=== PATIENT | female | born 1990 | race Hispanic/Latino ===

== ENCOUNTER 2016-10-01 12:11 | Emergency (ER) | payer OTHER ==
[2016-10-01 12:21] VITALS: BMI 48.1
[2016-10-01 12:25] VITALS: BP 121/73
[2016-10-01] MEDS ORDERED: Lidocaine 1%/Epinephrine 1:100000 30 ml vial IJ STA (12:46)
--- NOTE | 2016-10-01 12:50 | ED PDOC ---
Arrival/HPI - General Chief Complaint: Groin Pain Time Seen by Provider: 10/01/16 12:39 Historian: Patient - History of Present Illness Narrative History of Present Illness (Text): 10/01/16 12:41 A 25 year old female presents to the emergency department complaining of a painful abscess to the left groin. Patient reports she noticed it yesterday. She notes some drainage from the site yesterday evening. She denies any fever, or other complaints at this time. PMD: Dr. Murphy Time/Duration: 24 hours Symptom Onset: Sudden Symptom Course: Unchanged Quality: Other Activities at Onset: Rest Context: Home Past Medical History - Provider Review Nursing Documentation Reviewed: Yes - Infectious Disease Hx of Infectious Diseases: None - Pulmonary Hx Bronchitis: Yes Hx Pneumonia: Yes - Gastrointestinal Hx Gall Bladder Disease: Yes Hx Gastroesophageal Reflux: Yes - Psychiatric Hx Anxiety: Yes Hx Depression: No Hx Emotional Abuse: No Hx Panic Disorder: Yes Hx Physical Abuse: No Hx Substance Use: Yes (cannabis) - Surgical History Hx Section: Yes (x1) Hx Tonsillectomy: Yes - Anesthesia Hx Anesthesia: Yes Hx Anesthesia Reactions: No Hx Malignant Hyperthermia: No - Suicidal Assessment Feels Threatened In Home Enviroment: No Family/Social History - Physician Review Nursing Documentation Reviewed: Yes Family/Social History: Unknown Family HX Smoking Status: Heavy Smoker > 10 Cigarettes Daily Hx Alcohol Use: No Hx Substance Use: Yes (cannabis) Allergies/Home Meds Allergies/Adverse Reactions: Allergies No Known Allergies Allergy (Verified 03/13/15 22:49) Review of Systems - Physician Review All systems were reviewed & negative as marked: Yes - Review of Systems Constitutional: absent: Fevers Skin: Abscess Physical Exam Vital Signs Reviewed: Yes Vital Signs Temp Pulse Resp BP Pulse Ox 10/01/16 14:00 98.1 F 79 16 98 10/01/16 12:25 98.5 F 81 18 121/73 96 Temperature: Afebrile Blood Pressure: Normal Pulse: Regular Respiratory Rate: Normal Appearance: Positive for: Well-Appearing, Non-Toxic, Comfortable Pain Distress: None Mental Status: Positive for: Alert and Oriented X 3 - Systems Exam Head: Present: Atraumatic, Normocephalic Conjunctiva: Present: Normal Mouth: Present: Moist Mucous Membranes Neck: Present: Normal Range of Motion Upper Extremity: Present: Normal Inspection Lower Extremity: Present: Normal Inspection Neurological: Present: GCS=15, CN II-XII Intact, Speech Normal Skin: Present: Warm, Dry, Normal Color, Other (1 cm area of erythema and fluctuance to the left groin). No: Rashes Psychiatric: Present: Alert, Oriented x 3, Normal Insight, Normal Concentration Medical Decision Making ED Course and Treatment: 10/01/16 12:41 Impression: A 25 year old female with an abscess to the left groin. Differential Diagnosis include but are not limited to: abscess. bedside us shows minimal colllection will open up and attempt to express more. Plan: -- Lidocaine and Tylenol -- Reassess and disposition Prior Visits: Notes and results from previous visits were reviewed. The patient last presented to the emergency department on 03/13/15 for evaluation of a left axilla abscess. Progress Notes: Bedside ultrasound shows minimal collection. Patient reports drainage of pus last night. Additional incision made with small amount of pus. Retail Analytics Manager: Jin , ED Scribe. Will discharge on Bactrim. 10/01/16 16:55 10/01/16 16:56 given return precautions. pt verbalizes understanding. - Medication Orders Current Medication Orders: Discontinued Medications Acetaminophen (Tylenol 325mg Tab) 975 mg PO STAT STA Stop: 10/01/16 12:47 Last Admin: 10/01/16 13:12 Dose: 975 mg Lidocaine/Epinephrine (Lidocaine 1%/Epinephrine 1:216964 30 Ml) 5 ml IJ STAT STA Stop: 10/01/16 12:47 Trimethoprim/Sulfamethoxazole (Bactrim Ds Tab) 1 tab PO STAT STA PRN Reason: Protocol Stop: 10/01/16 13:19 Last Admin: 10/01/16 13:51 Dose: 1 tab - Scribe Statement The provider has reviewed the documentation as recorded by the Concettaibe Jin Garcia Provider Scribe Attestation: All medical record entries made by the Concettaibrodney were at my direction and personally dictated by me. I have reviewed the chart and agree that the record accurately reflects my personal performance of the history, physical exam, medical decision making, and the department course for this patient. I have also personally directed, reviewed, and agree with the discharge instructions and disposition. Disposition/Present on Arrival - Present on Arrival Any Indicators Present on Arrival: No History of DVT/PE: No History of Uncontrolled Diabetes: No Urinary Catheter: No History of Decub. Ulcer: No History Surgical Site Infection Following: None - Disposition Have Diagnosis and Disposition been Completed?: Yes Diagnosis: Abscess Disposition: HOME/ ROUTINE Disposition Time: 02:00 Condition: STABLE Discharge Instructions (ExitCare): Abscess (ED) Additional Instructions: please follow up with your doctor. return to er with worsneing symptoms or concerns. Prescriptions: Naproxen 500 mg PO BID PRN #14 tab PRN Reason: Pain, Mild (1-3) Sulfamethoxazole/Trimethoprim [Bactrim DS 800 mg-160 mg] 1 tab PO BID #14 tab Referrals: Gadiel Vazquez MD [Medical Doctor] - Follow up with primary
[2016-10-01] MEDS ORDERED: Tmp-Smz 800 mg-160 mg DS Tab PO STA (13:18)
[2016-10-01 14:01] VITALS: PULSE 79; RESP 16; TEMP 98.1; O2SAT 98
== END 2016-10-01 14:01 | disposition home or self-care (01) ==
LOC: ED 12:11
DX: L02.214 Cutaneous abscess of groin (principal)

== ENCOUNTER 2017-01-27 17:28 | Emergency (ER) | payer OTHER ==
[2017-01-27 17:29] VITALS: BMI 48.1
[2017-01-27 18:24] LABS: URINE BILIRUBIN SMALL (NEGATIVE); URINE BLOOD LARGE (NEGATIVE); URINE GLUCOSE (UA) NEGATIVE (NEGATIVE); URINE KETONE TRACE mg/dL (NEGATIVE); URINE LEUKOCYTE ESTERASE TRACE Leu/uL (NEGATIVE); URINE PROTEIN 100 mg/dL (<30 mg/dL)
[2017-01-27 18:25] LABS: URINE APPEARANCE SL CLOUDY (CLEAR); URINE COLOR YELLOW (YELLOW)
[2017-01-27 18:37] LABS: URINE RBC 15 - 20 /hpf (0-2)
[2017-01-27 18:38] LABS: URINE BACTERIA MOD (NEG)
--- NOTE | 2017-01-27 19:12 | ED PDOC ---
"Arrival/HPI - General Chief Complaint: Female Genitourinary Time Seen by Provider: 01/27/17 17:59 Historian: Patient - History of Present Illness Narrative History of Present Illness (Text): 01/27/17 19:09 26yr old female presents today with brown vaginal discharge. pt states she is due to get her period and noticed a brown discharge. pt states she has never had a brown bloody discharge before and is worried that something is not right. pt c/o occasional cramping. no cp or sob. no vomiting/diarrhea. no urinary symptoms. no weakness or fatigue. pt also states she feels a small lump to left side of neck just under jaw. no fever/chills. + recent URI. Time/Duration: Other (1 day) Symptom Onset: Sudden Symptom Course: Improving, Intermittent Quality: Cramping Severity Level: 2 Past Medical History - Provider Review Nursing Documentation Reviewed: Yes - Travel History Have you recently traveled outside [place] w/in the past 3 mons?: No - Infectious Disease Hx of Infectious Diseases: None - Pulmonary Hx Bronchitis: Yes Hx Pneumonia: Yes - Gastrointestinal Hx Gall Bladder Disease: Yes Hx Gastroesophageal Reflux: Yes - Psychiatric Hx Anxiety: Yes Hx Depression: No Hx Emotional Abuse: No Hx Panic Disorder: Yes Hx Physical Abuse: No Hx Substance Use: Yes (cannabis) - Surgical History Hx Section: Yes (x1) Hx Tonsillectomy: Yes - Anesthesia Hx Anesthesia: Yes Hx Anesthesia Reactions: No Hx Malignant Hyperthermia: No - Suicidal Assessment Feels Threatened In Home Enviroment: No Family/Social History - Physician Review Nursing Documentation Reviewed: Yes Family/Social History: Unknown Family HX Smoking Status: Heavy Smoker > 10 Cigarettes Daily Hx Alcohol Use: No Hx Substance Use: Yes (cannabis) Allergies/Home Meds Allergies/Adverse Reactions: Allergies No Known Allergies Allergy (Verified 03/13/15 22:49) Review of Systems - Review of Systems Constitutional: absent: Fatigue, Fevers Respiratory: absent: SOB, Cough Cardiovascular: absent: Chest Pain, Palpitations Gastrointestinal: Abdominal Pain. absent: Constipation, Diarrhea, Nausea, Vomiting Genitourinary Female: Vaginal Bleeding. absent: Dysuria, Frequency, Hematuria Musculoskeletal: absent: Arthralgias, Back Pain, Neck Pain Skin: absent: Rash, Pruritis Neurological: absent: Headache, Dizziness Psychiatric: absent: Anxiety, Depression Physical Exam Vital Signs Reviewed: Yes Vital Signs Temp Pulse Resp BP Pulse Ox 01/27/17 20:25 98 F 78 19 124/75 99 01/27/17 18:58 98.1 F 74 18 132/72 98 Temperature: Afebrile Blood Pressure: Normal Pulse: Regular Respiratory Rate: Normal Appearance: Positive for: Well-Appearing, Non-Toxic, Comfortable Pain Distress: None Mental Status: Positive for: Alert and Oriented X 3 - Systems Exam Head: Present: Atraumatic Mouth: Present: Moist Mucous Membranes Pharnyx: Present: Normal. No: ERYTHEMA, EXUDATE Nose (External): Present: Atraumatic Nose (Internal): Present: Normal Inspection Neck: Present: Normal Range of Motion, Trachea Midline, Other (there is a small minimally tender mobile nodule noted just inferior to the angle of the mandible on the left side; no erythema; ) Respiratory/Chest: Present: Clear to Auscultation, Good Air Exchange. No: Respiratory Distress, Accessory Muscle Use Cardiovascular: Present: Regular Rate and Rhythm, Normal S1, S2. No: Murmurs Abdomen: Present: Normal Bowel Sounds. No: Tenderness, Distention, Peritoneal Signs, Rebound, Guarding Genitourinary/Pelvic Exam: Present: Normal External Genitalia, Vaginal Bleeding (brownish discharge;), Cervical os Closed, Other (chaparoned by Alejandro REYES RN). No: Vaginal Lesions, Adenexal Tenderness, Adenexal Mass, Cervical Motion Tendernes, Odor Upper Extremity: Present: Normal Inspection Lower Extremity: Present: Normal Inspection Neurological: Present: GCS=15 Skin: Present: Warm, Dry, Normal Color. No: Rashes Psychiatric: Present: Alert, Oriented x 3 Medical Decision Making ED Course and Treatment: 01/27/17 19:13 26yr old female c/o brown bloody discharge. states she is due to get her period soon. LMP 9.14.17. pt refusing blood work. transvaginal US: FINDINGS: Uterus/cervix: Uterus measures 9.0 x 3.4 x 5.4 cm in size. No myometrial mass. Endometrium: 0.3 cm in thickness. Right ovary: 4.7 x 2.2 x 4.9 cm in size. No mass. Small follicles. Normal flow. Left ovary: 4.1 x 4.1 x 1.8 cm in size. No mass. Small follicles. Normal flow. Free fluid: No significant free fluid. Bladder: Unremarkable as visualized. IMPRESSION: 1. No acute findings. EXAM: US Pelvis, Transvaginal CLINICAL HISTORY: 26 years old, female; Pain; Pelvic pain; Additional info: Cramping and bloody discharge TECHNIQUE: Real-time transvaginal pelvic ultrasound (complete) with image documentation. Transvaginal imaging was used for better evaluation of the endometrium and adnexa. ANASTACIA MCMANUS | Final Radiology Report CONFIDENTIALITY STATEMENT This report is intended only for use by the referring physician, and only in accordance with law. If you received this in error, call [phone]. Page 2 of 2 COMPARISON: No relevant prior studies available. FINDINGS: Uterus/cervix: Uterus measures 9.0 x 3.4 x 5.4 cm in size. No myometrial mass. Endometrium: 0.3 cm in thickness. Right ovary: 4.7 x 2.2 x 4.9 cm in size. No mass. Small follicles. Normal flow. Left ovary: 4.1 x 4.1 x 1.8 cm in size. No mass. Small follicles. Normal flow. Free fluid: No significant free fluid. Bladder: Empty bladder which cannot be evaluated with this probe. IMPRESSION: 1. No acute findings. pt with very small lump to left side of neck just under mandible; no edema, no erythema; no warmth. minimal tenderness. pt with recent uri, advised f/u with PMD for blood work; pt refusing blood work today. advised patient it is most likely lymph node but to f/u with doctor to make sure it resolves otherwise it will need further work up. patient was advised to f/u with PARTS COUNTER SPECIALIST. pt verbalized understanding of D/c instructions and need for f/u with PMD/foreign food specialty cook. impression; vaginal bleeding, lymphadenopathy, UTI increase fluids follow up with the primary care physician within the next 2 days follow up with the PARTS COUNTER SPECIALIST within the next 2 days. macrobid twice daily x 10 days return immediately if symptoms worsen,persist or if new symptoms develop. - Lab Interpretations Lab Results: Lab Results 01/27/17 18:10: Urine Color Yellow, Urine Appearance Sl cloudy, Urine pH 6.0, Ur Specific [place] >= 1.030, Urine Protein 100 H, Urine Glucose (UA) Negative, Urine Ketones Trace H, Urine Blood Large H, Urine Nitrate Negative, Urine Bilirubin Small H, Urine Urobilinogen 1.0 H, Ur Leukocyte Esterase Trace H, Urine RBC 15 - 20, Urine WBC 5 - 10, Ur Epithelial Cells 6 - 8, Urine Bacteria Mod - RAD Interpretation Radiology Orders: 01/27/17 18:30 TRANSVAGINAL [US] Stat - Medication Orders Current Medication Orders: Discontinued Medications Ibuprofen (Motrin Tab) 600 mg PO STAT STA Stop: 01/27/17 19:07 Last Admin: 01/27/17 19:14 Dose: 600 mg MAR Pain/Vitals Document 01/27/17 19:14 GMI (Rec: 01/27/17 19:16 GMI [id number]) Pain Reassessment Is This A Pain ReAssessment? Yes Sleep Is patient sleeping during reassessment? No Presence of Pain Presence of Pain Yes Pain Scale Used Pain Scale Used Numeric Location Description Intermittent Intensity 6 Scale Used Numeric Pain Behavior Facial Grimacing Aggravating Factors None Alleviating Factors Medication Disposition/Present on Arrival - Present on Arrival Any Indicators Present on Arrival: No History of DVT/PE: No History of Uncontrolled Diabetes: No Urinary Catheter: No History of Decub. Ulcer: No History Surgical Site Infection Following: None - Disposition Have Diagnosis and Disposition been Completed?: Yes Diagnosis: Vaginal bleeding, Lymphadenopathy, Urinary tract infection Disposition: HOME/ ROUTINE Disposition Time: 20:05 Patient Plan: Discharge Condition: GOOD Discharge Instructions (ExitCare): Urinary Tract Infection in Women (ED) Additional Instructions: increase fluids follow up with the primary care physician within the next 2 days Nitrofurantoin; 1 tablet twice daily x 10 days. follow up with the PARTS COUNTER SPECIALIST within the next 2 days. return immediately if symptoms worsen,persist or if new symptoms develop. Prescriptions: Nitrofurantoin Macrocrystals [Macrobid] 100 mg PO BID #20 cap Referrals: Shant Bhagat MD [Staff Provider] - Follow up with primary Jazmin Ott MD [Staff Provider] - Follow up with primary Forms: [employer] (Mongolian), WORK NOTE"
--- NOTE | 2017-01-27 20:14 | US ---
EXAM: US Pelvis Complete, Transabdominal CLINICAL HISTORY: 26 years old, female; Pain; Pelvic pain; Additional info: Cramping and bloody discharge TECHNIQUE: Real-time transabdominal pelvic ultrasound (complete) with image documentation. COMPARISON: No relevant prior studies available. FINDINGS: Uterus/cervix: Uterus measures 9.0 x 3.4 x 5.4 cm in size. No myometrial mass. Endometrium: 0.3 cm in thickness. Right ovary: 4.7 x 2.2 x 4.9 cm in size. No mass. Small follicles. Normal flow. Left ovary: 4.1 x 4.1 x 1.8 cm in size. No mass. Small follicles. Normal flow. Free fluid: No significant free fluid. Bladder: Unremarkable as visualized. IMPRESSION: 1.No acute findings. EXAM: US Pelvis, Transvaginal CLINICAL HISTORY: 26 years old, female; Pain; Pelvic pain; Additional info: Cramping and bloody discharge TECHNIQUE: Real-time transvaginal pelvic ultrasound (complete) with image documentation. Transvaginal imaging was used for better evaluation of the endometrium and adnexa. COMPARISON: No relevant prior studies available. FINDINGS: Uterus/cervix: Uterus measures 9.0 x 3.4 x 5.4 cm in size. No myometrial mass. Endometrium: 0.3 cm in thickness. Right ovary: 4.7 x 2.2 x 4.9 cm in size. No mass. Small follicles. Normal flow. Left ovary: 4.1 x 4.1 x 1.8 cm in size. No mass. Small follicles. Normal flow. Free fluid: No significant free fluid. Bladder: Empty bladder which cannot be evaluated with this probe. IMPRESSION: 1.No acute findings.
[2017-01-27 20:27] VITALS: BP 124/75; PULSE 78; RESP 19; TEMP 98; O2SAT 99
== END 2017-01-27 20:29 | disposition home or self-care (01) ==
LOC: ED 17:28
DX: N39.0 Urinary tract infection, site not specified (principal); R59.1 Generalized enlarged lymph nodes; N93.9 Abnormal uterine and vaginal bleeding, unspecified

== ENCOUNTER 2018-03-30 08:24 | Emergency (ER) | payer OTHER ==
[2018-03-30 08:25] VITALS: BMI 48.1
[2018-03-30 08:33] VITALS: TEMP 97.9
[2018-03-30] MEDS ORDERED: Sodium Chloride 0.9% 1,000 ML IV STA ×2 (08:44)
--- NOTE | 2018-03-30 08:54 | ED PDOC ---
Arrival/HPI - General Chief Complaint: Female Genitourinary Time Seen by Provider: 03/30/18 08:43 Historian: Patient, Parent - History of Present Illness Narrative History of Present Illness (Text): 03/30/18 08:52 A 27 year old female, whose past medical history includes , presents to the emergency department for further evaluation of miscarriage. The patient reports 7 hours of heavy bleeding. Patient reports that she is 9-11 weeks . She states that she is dizzy and unable to walk. Patient denies fevers, chills, headache, chest pain, shortness of breath, dyspnea on exertion, cough, nausea, vomiting, diarrhea, back pain, neck pain, urinary/bowel changes, or any other complaint. OB- SUPPLY CHAIN MANAGER: Dr. Jasson Pavon ([place]) Time/Duration: Other (Today. 7 hours.) Symptom Onset: Gradual Symptom Course: Unchanged Activities at Onset: Rest, Light Context: Home Past Medical History - Provider Review Nursing Documentation Reviewed: Yes - Infectious Disease Hx of Infectious Diseases: None - Cardiac Hx Cardiac Disorders: No - Pulmonary Hx Bronchitis: Yes Hx Pneumonia: Yes - Neurological Hx Neurological Disorder: No - HEENT Hx HEENT Disorder: No - Renal Hx Renal Disorder: No - Endocrine/Metabolic Hx Endocrine Disorders: No - Hematological/Oncological Hx Blood Disorders: No - Integumentary Hx Dermatological Disorder: No - Musculoskeletal/Rheumatological Hx Musculoskeletal Disorders: No - Gastrointestinal Hx Gall Bladder Disease: Yes - Genitourinary/Gynecological Hx Genitourinary Disorders: No - Psychiatric Hx Anxiety: Yes Hx Depression: No Hx Substance Use: Yes (cannabis) - Surgical History Hx Tonsillectomy: Yes - Anesthesia Hx Anesthesia: Yes Hx Anesthesia Reactions: No Hx Malignant Hyperthermia: No - Suicidal Assessment Feels Threatened In Home Enviroment: No Family/Social History - Physician Review Nursing Documentation Reviewed: Yes Family/Social History: No Known Family HX Smoking Status: Heavy Smoker > 10 Cigarettes Daily Hx Alcohol Use: No Hx Substance Use: Yes (cannabis) Allergies/Home Meds Allergies/Adverse Reactions: Allergies No Known Allergies Allergy (Verified 03/30/18 08:33) Home Medications: Home Meds Medication Instructions Recorded Confirmed No Known Home Med 03/30/18 03/30/18 Review of Systems - Physician Review All systems were reviewed & negative as marked: Yes - Review of Systems Constitutional: absent: Fevers Respiratory: absent: SOB, Cough Cardiovascular: absent: Chest Pain, SORIANO Gastrointestinal: absent: Diarrhea, Nausea, Vomiting Genitourinary Female: Vaginal Bleeding Musculoskeletal: absent: Back Pain, Neck Pain Neurological: Dizziness. absent: Headache Physical Exam - Physical Exam Narrative Physical Exam (Text): Gen: VS reviewed, alert, well developed, well nourished, nontoxic, moderate distress. Appears somewhat confused. ENT: normal pharynx. Eye: EOMI, PERRL. Neck: no JVD, supple, no adenopathy. CV: regular rate, regular rhythm, no rubs, no murmur, no gallops, S1, S2, pulses equal and strong. Pulm: no distress, clear to auscultation, no wheeze, no rhonchi, breath sounds equal, no rales. Abd: mild suprapucic tenderness. soft, no guarding, no rebound, no rigidity, normal bowel sounds. : large clots of blood expressed from vagina with valsalva. Ext: no edema. Skin: Pale, no rash, no cyanosis. Psych: responds appropriately to questions, normal affect. Neuro: oriented x 3, CN2-12 intact grossly, motor intact, sensation intact. Vital Signs Reviewed: Yes Vital Signs Temp Pulse Resp BP Pulse Ox 03/30/18 08:31 97.9 F 73 18 101/63 99 Temperature: Afebrile Blood Pressure: Normal Pulse: Regular Respiratory Rate: Normal Appearance: Positive for: Non-Toxic Pain Distress: None Mental Status: Positive for: Alert and Oriented X 3 Medical Decision Making ED Course and Treatment: 03/30/18 08:54 Impression: A 27 year old female, 9-11 weeks , presents to the emergency department with a complaint of 7 hours of vaginal bleeding. Plan: -- Transvaginal Ultrasound -- Labs -- IV Fluids -- Reassess and disposition Prior Visits: Notes and results from previous visits were reviewed. Progress Notes: 03/30/18 08:55: Quick bedside Ultrasound performed by myself, on my inspection there is a heterogeneous fluid within the uterus, no definitive gestation seen. Case discussed with Dr. Garcia (DISTRICT MANAGER construction mgr) who agrees patient will need emergent consultation and likely and D & C. Will call back regarding disposition. 03/30/18 08:55: Dr. Garcia called back. 03/30/18 09:04: Discussed with Dr. Pavon at [facility] who accepts patient for transfer ER to ER. Agrees we should hold blood transfusion for now. 03/30/18 09:10: Report given to [facility] ER physician, Dr. Chau. 03/30/18 09:23 patient seen for acute severe bleeding and shock-like clinical state. patient 11weeks by reported dates. 2 iv's started, IVF bolus, vitals signs relatively normal, Hb stable for now. Patient will require a obgyn consultation for presumed spontaneous miscarriage. - RAD Interpretation Radiology Orders: 03/30/18 08:45 TRANSVAGINAL [US] Stat - Medication Orders Current Medication Orders: Sodium Chloride (Sodium Chloride 0.9%) 1,000 mls @ 999 mls/hr IV .Q1H1M STA Stop: 03/30/18 09:44 Sodium Chloride (Sodium Chloride 0.9%) 1,000 mls @ 999 mls/hr IV .Q1H1M STA Stop: 03/30/18 09:44 - Scribe Statement The provider has reviewed the documentation as recorded by the Cande Castellano Provider Scribe Attestation: All medical record entries made by the Scribe were at my direction and personally dictated by me. I have reviewed the chart and agree that the record accurately reflects my personal performance of the history, physical exam, medical decision making, and the department course for this patient. I have also personally directed, reviewed, and agree with the discharge instructions and disposition. Disposition/Present on Arrival - Present on Arrival Any Indicators Present on Arrival: No History of DVT/PE: No History of Uncontrolled Diabetes: No Urinary Catheter: No History of Decub. Ulcer: No History Surgical Site Infection Following: None - Disposition Have Diagnosis and Disposition been Completed?: Yes Diagnosis: Miscarriage, Incomplete miscarriage with shock Disposition: Transfer [facility] Disposition Time: 09:27 Condition: FAIR Forms: [employer] (Hong Konger)
[2018-03-30 08:59] LABS: BASO # 0.04 K/mm3 (0.0-2.0); BASO % 0.4 % (0.0-3.0); EOS # 0.3 (0.0-0.7); EOS % 3.4 % (1.5-5.0); GRAN # 5.47 (1.4-6.5); GRAN % 59.4 % (50.0-68.0); HEMOGLOBIN 11.7 g/dL (12.0-16.0); LYMPH % 32.1 % (22.0-35.0); MEAN CELL VOLUME 84.9 fl (80.0-105.0); MEAN CORPUSCULAR HEMOGLOBIN 28.9 pg (25.0-35.0); MEAN PLATELET VOLUME 9.4 fl (7.0-11.0); MONO # 0.4 (0.1-0.6); MONO % 4.7 % (1.0-6.0); RBC 4.05 10^6/uL (3.5-6.1); RED CELL DISTRIBUTION WIDTH 13.8 % (11.5-14.5); WHITE BLOOD COUNT 9.2 10^3/uL (4.5-11.0)
[2018-03-30 09:04] LABS: INR 1.14; PROTHROMBIN TIME 13.1 SECONDS (9.4-12.5)
[2018-03-30 09:15] LABS: ALB/GLOB RATIO 1.2 (1.1-1.8); ALBUMIN 3.7 g/dL (3.0-4.8); ALT/SGPT 17 U/L (7-56); AST/SGOT 21 U/L (14-36); BLOOD UREA NITROGEN 13 mg/dL (7-21); GFR NON-AFRICAN AMERICAN > 60
[2018-03-30 09:16] VITALS: RESP 18
[2018-03-30 09:26] VITALS: BP 115/62; PULSE 68; O2SAT 100
--- NOTE | 2018-03-30 10:43 | US ---
Date of service: 03/30/2018 Indication: bleeding, ED study Comparison: Transvaginal pelvic ultrasound performed 01/27/17 Technique: Transvaginal pelvic ultrasound. Findings: The uterus measures approximately 10.2 x 5.5 x 6.1 cm. Cervix length measures approximately 3.9 cm. Intrauterine gestational sac measures approximately 0.8 x 0.4 cm. Evidence of yolk sac measuring approximately 3 mm. Gestational sac appears at the lower uterine segment/cervix level. Bilateral ovaries were not visualized. Small pelvic free fluid. Impression: Evidence of intrauterine gestational sac at the lower uterine segment/cervix. Small pelvic fluid. Appearance consistent with miscarriage in process. Correlate clinically. Bilateral ovaries were not visualized.
== END 2018-03-30 10:12 | disposition short-term general hospital (02) ==
LOC: ED 08:24
DX: O03.31 Shock following incomplete spontaneous abortion (principal); Z3A.11 11 weeks gestation of pregnancy
CPT/HCPCS: 76830; 80053; 84702; 85025; 85610; 85730; 86850; 86900; 86920; 96360; 99284; J7030